=== PATIENT | male | born 1945 | race Caucasian/White ===

== ENCOUNTER → 2022-10-12 10:11 | Outpatient (CLI) | payer OTHER, SELFPAY ==
--- NOTE | 2022-10-12 | DI.ECHO.S_ITS ---
[facility] +---------+ [facility] +---------+ : : [address] : [address] : : : : [id number] : : : : Phone: [phone] +---------+ Echocardiogram Report + + :Name: PERRY SANDOVAL Study Date: 10/12/2022 Height: 67 in : :[facility] ReadingLocation: Weight: 200 lb : : Gender: Male BSA: 2.0 m2 : :: 1945 Age: 77 yrs BP: 118/65 mmHg: :Reason For Study: Atherosclerotic Heart Disease : :Ordering Physician: WAI, : :CHRISTOS Performed By: Maddie Reed : :Referring: CHRISTOS CARRENO : + + Interpretation Summary Technically difficult study. The left ventricle is normal in size. The ejection fraction is estimated to be 35-40%. Akinetic mid to distal septum is severely hypokinetic to akinetic inferior wall. The right ventricle is normal size. There is a pacemaker lead in the right ventricle. Right ventricular function cannot be assessed due to poor image quality. All the valves were not well visualized. The IVC is of normal diameter and collapses greater than 50% with a sniff. This suggests a low right atrial pressure of 3 mm Hg. Procedure: A two-dimensional transthoracic echocardiogram with color flow and Doppler was performed. The study quality was technically difficult. There is no prior echocardiogram noted for this patient. A contrast injection of Definity was performed to improve assessment of LV function. The patient has a paced rhythm. The patient was in first degree heart block during the exam. Left Ventricle: The left ventricle is normal in size. Proximal septal thickening is noted. There is no echo evidence for significant left ventricular outflow tract obstruction. There is no thrombus. The ejection fraction is estimated to be 35-40%. Akinetic mid to distal septum is severely hypokinetic to akinetic inferior wall. MV E/A: 0.68. Right Ventricle: The right ventricle is normal size. There is a pacemaker lead in the right ventricle. Right ventricular function cannot be assessed due to poor image quality. Atria: The left atrial size is normal. Right atrial size is normal. There is no Doppler evidence for an interatrial shunt. Mitral Valve: The mitral valve leaflets are moderately calcified. The mitral valve is not well visualized. The mitral valve chordae are thickened and/or calcified. There is moderate to severe mitral annular calcification. The mitral valve mean gradient is 2 mmHg. No significant mitral valve stenosis. There is trace mitral regurgitation. Aortic Valve: The aortic valve is not well visualized. The aortic valve is moderately calcified. There is no hemodynamically significant valvular aortic stenosis. No aortic regurgitation is present. Tricuspid Valve: The tricuspid valve is not well visualized. There is no tricuspid stenosis. There is trace tricuspid regurgitation. Pulmonary artery pressures cannot be estimated because of the lack of a measurable TR jet velocity. Pulmonic Valve: The pulmonic valve is not well visualized. There is no pulmonic valvular stenosis. There is no pulmonic valvular regurgitation. Great Vessels: The aortic root is normal size. The ascending aorta is normal in size. The pulmonary artery is normal size. The IVC is of normal diameter and collapses greater than 50% with a sniff. This suggests a low right atrial pressure of 3 mm Hg. Pericardium/ Pleura There is no pericardial effusion. There is no pleural effusion. MMode/2D Measurements & Calculations LVIDd: 4.2 cm LVOT diam: 1.9 cm LVIDs: 3.8 cm Ao root diam: 2.8 cm FS: 9.5 % asc Aorta Diam: 2.8 cm IVSd: 1.0 cm LVPWd: 1.0 cm LV chen. diameter/BSA (cm/m^2): 2.1 LV sys. diameter/BSA (cm/m^2): 1.9 LA A2 area: 14.3 cm2 RA long axis: 4.4 cm LA A4 area: 14.7 cm2 RA area: 10.5 cm2 LA length (vol): 4.4 cm RA vol: 21.3 ml LA vol: 40.2 ml RA : 10.5 ml/m2 LA vol index: 19.9 ml/m2 RVD1 (basal): 3.5 cm LVLs ap4: 5.2 cm LVLd ap2: 5.8 cm LVLs ap2: 4.7 cm Doppler Measurements & Calculations Ao V2 max: 157.0 cm/sec LVOT Max Rodolfo: 65.4 cm/sec Ao V2 mean: 112.0 cm/sec LV V1 max P.7 mmHg Ao max P.0 mmHg LV V1 VTI: 11.5 cm Ao mean P.0 mmHg ISIDRO(I,D): 0.97 cm2 Ao V2 VTI: 33.5 cm ISIDRO(V,D): 1.2 cm2 sev ratio: 0.34 ISIDRO indexed to BSA (cm^2/m^2): 0.48 MV E max rodolfo: 76.6 cm/sec PA V2 max: 75.0 cm/sec MV A max rodolfo: 113.0 cm/sec PA V2 mean: 56.2 cm/sec MV E/A: 0.68 PA mean P.0 mmHg MV dec time: 0.30 sec PA pr(Accel): 31.3 mmHg MVA(VTI): 1.0 cm2 MV V2 mean: 65.5 cm/sec SV(LVOT): 32.6 ml MV mean P.0 mmHg MV V2 VTI: 31.7 cm AV VR_phl: 0.42 MV P1/2t-pr_phl: 88.0 msec ISIDRO(VTI)/BSA_phl: 0.48 Reading Physician:02:05 PM
== END ==
PROVIDERS: Visit Provider Physician Assistant
DX: I25.10 Atherosclerotic heart disease of native coronary artery without angina pectoris (principal); Z95.0 Presence of cardiac pacemaker; I34.81 Nonrheumatic mitral (valve) annulus calcification
CPT/HCPCS: 93306